=== PATIENT | male | born 1975 ===

== ENCOUNTER 2018-02-02 22:15 | Observation (INO) ==
[2018-02-02] MEDS ORDERED: ONDANSETRON 4 MG/2 ML VIAL IV STA (23:36)
[2018-02-02] MEDS ORDERED: SODIUM CHLORIDE 0.9% 500 ML IV STA (23:38)
[2018-02-03 00:06] LABS: Basophils % 0.2 % (0.0-0.8); Eosinophils % 0.4 % (0.00-10.9); Hematocrit 46.6 VOL% (42.0-52.0); Hemoglobin 16.1 GM/DL (14.0-18.0); Immature Granulocytes % 0.4 %; Immature Granulocytes Absolute 0.04 #; Lymphocytes # 1.1 10*3/uL (1.4-4.0); Lymphocytes % 11.9 % (21.2-54.2); Mean Corpuscular HGB Conc 34.5 GM/DL (32-36); Mean Corpuscular Hemoglobin 29 PG (27-34); Mean Corpuscular Volume 84.9 FL (87-102); Mean Platelet Volume 8.5 FL (9.6-12.0); Monocytes # 0.5 10*3/uL (0.11-0.8); Monocytes % 5.6 % (1.7-12.7); Neutrophils # 7.6 10*3/uL (1.4-7.4); Neutrophils % 81.5 % (38.7-73.9); Platelet Count 200 T/CUMM (130-400); Red Blood Count 5.49 MC/CUMM (3.8-5.5); Red Cell Distribution Width 11.9 % (9.3-17.3); White Blood Count 9.3 T/CUMM (4-12)
[2018-02-03 00:31] LABS: Albumin 4.1 G/DL (3.4-5.0); Bilirubin,Total 0.6 MG/DL (0.2-1.0); Calcium 8.8 MG/DL (8.5-10.1); Osmolality,Calculated 279.5 MOS/KG (273-304); Potassium 4.3 MMOL/L (3.5-5.1); Total Protein 7.4 G/DL (6.4-8.3)
[2018-02-03] MEDS ORDERED: ONDANSETRON 4 MG/2 ML VIAL IV PRN (01:05)
[2018-02-03] MEDS ORDERED: DEXTROSE 50% 25 GM/50 ML VIAL IV PRN (01:11)
[2018-02-03] MEDS ORDERED: GLUCAGON 1 MG VIAL IM PRN (01:11)
[2018-02-03 01:41] LABS: INR 0.9; PT Patient Result 10.3 SECS; Partial Thromboplastin Time 24.2 SECS (0-40)
[2018-02-03] MEDS: INSULIN LISPRO 100 UNIT/ML SUBCUT SCH ×6 (02:11→23:52)
[2018-02-03] MEDS: SODIUM CHLORIDE 0.9% 1,000 ML IV SCH ×2 (02:15→14:28)
[2018-02-03 03:03] LABS: Hematocrit 45.8 VOL% (42.0-52.0); Hemoglobin 15.5 GM/DL (14.0-18.0)
[2018-02-03 04:08] LABS: Apearance,Urine CLEAR (Clear); Bilirubin,Urine Negative (Negative); Blood, Urine Small mg/dL (Negative); Glucose,Urine (UA) >=500 mg/dL (Negative); Ketones,Urine 20 mg/dL (Negative); Mucus,Urine Occasional /LPF (Occasional); Nitrite,Urine Negative (Negative); Protein,Urine 100 MG/DL; RBC,Urine 2 /HPF (0-4); Urine Color Yellow (Yellow); Urine Specific Gravity 1.024 (1.001-1.035); Urine Urobilinogen < 2.0 EU/DL (0.2-1.0); WBC,Urine 5 /HPF (0-6)
[2018-02-03 06:54] LABS: Hematocrit 43.7 VOL% (42.0-52.0); Hemoglobin 14.6 GM/DL (14.0-18.0)
[2018-02-03] MEDS: PANTOPRAZOLE 40 MG VIAL IV SCH ×2 (09:59→21:24)
[2018-02-03] MEDS: MULTIVITAMIN (CENTRUM) TABLET PO SCH (13:59)
[2018-02-03] MEDS: ENALAPRIL 10 MG TABLET PO SCH (13:59)
[2018-02-03 14:03] LABS: Hematocrit 43.5 VOL% (42.0-52.0); Hemoglobin 14.7 GM/DL (14.0-18.0)
[2018-02-03 19:18] LABS: Hematocrit 39.3 VOL% (42.0-52.0); Hemoglobin 13.4 GM/DL (14.0-18.0)
[2018-02-03] MEDS ORDERED: PRAVASTATIN 20 MG TABLET PO SCH (21:00)
[2018-02-03] MEDS: CARVEDILOL 12.5 MG TABLET PO SCH (21:24)
[2018-02-04] MEDS: INSULIN LISPRO 100 UNIT/ML SUBCUT SCH ×3 (02:09→11:47)
[2018-02-04] MEDS: SODIUM CHLORIDE 0.9% 1,000 ML IV SCH (03:30)
[2018-02-04 04:50] LABS: Basophils % 0.2 % (0.0-0.8); Eosinophils # 0.1 10*3/uL (0.0-0.87); Eosinophils % 1.5 % (0.00-10.9); Hematocrit 42.9 VOL% (42.0-52.0); Hemoglobin 14.2 GM/DL (14.0-18.0); Immature Granulocytes % 0.6 %; Immature Granulocytes Absolute 0.03 #; Lymphocytes # 1.5 10*3/uL (1.4-4.0); Lymphocytes % 31.7 % (21.2-54.2); Mean Corpuscular HGB Conc 33.1 GM/DL (32-36); Mean Corpuscular Hemoglobin 29 PG (27-34); Mean Corpuscular Volume 87.4 FL (87-102); Mean Platelet Volume 8.4 FL (9.6-12.0); Monocytes # 0.4 10*3/uL (0.11-0.8); Monocytes % 8.7 % (1.7-12.7); Neutrophils # 2.7 10*3/uL (1.4-7.4); Neutrophils % 57.3 % (38.7-73.9); Platelet Count 147 T/CUMM (130-400); Red Blood Count 4.91 MC/CUMM (3.8-5.5); Red Cell Distribution Width 12.1 % (9.3-17.3); White Blood Count 4.7 T/CUMM (4-12)
[2018-02-04 05:28] LABS: Albumin 3.2 G/DL (3.4-5.0); Bilirubin,Total 0.8 MG/DL (0.2-1.0); Calcium 8.4 MG/DL (8.5-10.1); Osmolality,Calculated 276.5 MOS/KG (273-304); Potassium 4.1 MMOL/L (3.5-5.1); Risk Ratio 3.78; Total Protein 6.8 G/DL (6.4-8.3); Uric Acid 4.5 MG/DL (3.5-7.2); VLDL CHOLESTEROL 21.2 MG/DL
[2018-02-04] MEDS: CARVEDILOL 12.5 MG TABLET PO SCH ×2 (09:00→11:47)
[2018-02-04] MEDS ORDERED: CITALOPRAM 20 MG TABLET PO SCH (09:00)
[2018-02-04] MEDS: MULTIVITAMIN (CENTRUM) TABLET PO SCH (10:50)
[2018-02-04] MEDS: PANTOPRAZOLE 40 MG VIAL IV SCH (10:50)
[2018-02-04] MEDS: ENALAPRIL 10 MG TABLET PO SCH (10:50)
[2018-02-04 12:01] VITALS: BP 154/77
[2018-02-04] MEDS ORDERED: SIMVASTATIN 10 MG TABLET PO SCH (21:00)
[2018-02-05] MEDS ORDERED: PANTOPRAZOLE 40 MG TABLET PO SCH (09:00)
== END 2018-02-04 15:10 | disposition home or self-care (01) ==
LOC: N.ED 22:15 → N.EDINP 22:15 → N.2E 02-03 01:19
PROVIDERS: ADMIT Internal Medicine; ATTEND Internal Medicine